=== PATIENT | female | born 1955 | race Caucasian/White ===

== ENCOUNTER 2018-04-20 19:11 | Emergency (ER) | payer OTHER ==
[~2018-04-20] VITALS: Ht 177.8 cm; Wt 97.4 kg
[2018-04-20 19:13] VITALS: BP 188/78; PULSE 97; RESP 18; Ht 177.8 cm; Wt 97.4 kg
[2018-04-20] MEDS ORDERED: KETOROLAC 60 MG INJ IM STA (20:57)
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
[2018-04-20] MEDS ORDERED: HYDR-4011 PO (22:28)
[2018-04-20] MEDS ORDERED: CYCL10TA7 PO (22:28)
[2018-04-20] MEDS ORDERED: IBUP-1542 PO (22:28)
[2018-04-20] MEDS ORDERED: PRED20TA PO (22:28)
== END 2018-04-20 22:48 | disposition home or self-care (01) ==
LOC: FTE 19:11
DX: M50.320 Other cervical disc degeneration, mid-cervical region, unspecified level (principal); M54.12 Radiculopathy, cervical region; I10 Essential (primary) hypertension; Z87.891 Personal history of nicotine dependence
CPT/HCPCS: 72125; 96372; J1885; Z7502

== ENCOUNTER 2018-07-18 01:25 | Emergency (ER) | payer OTHER ==
[~2018-07-18] VITALS: Ht 177.8 cm; Wt 95.0 kg
[~2018-07-18 01:25] MED LIST: CYCL10TA7 PO; HYDR-4011 PO; IBUP-1542 PO; PRED20TA PO
[2018-07-18 01:46] VITALS: Ht 177.8 cm; Wt 95.0 kg
[2018-07-18] MEDS ORDERED: ASPIRIN 81 MG TAB PO STA (06:00)
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
[2018-07-18 09:21] VITALS: BP 122/81; PULSE 73; RESP 16
== END 2018-07-18 09:22 | disposition home or self-care (01) ==
LOC: E/R 01:25
DX: R09.1 Pleurisy (principal); I10 Essential (primary) hypertension; E03.9 Hypothyroidism, unspecified
CPT/HCPCS: 36415; 71045; 80048; 82375; 83880; 84484; 85025; 85378; 93005; Z7502; Z7610